=== PATIENT | female | born 1940 | race Caucasian/White ===

== ENCOUNTER 2017-01-17 13:59 | Emergency (ER) | payer OTHER ==
--- NOTE | 2017-01-17 14:37 | EDPHY ---
H & P Stated Complaint: RIGHT SIDE CP SHOOTING DOWN RIGHT ARM, BACK, AND CHEST. HPI/ROS: CHIEF COMPLAINT: Left arm pain, chest pain HISTORY OF PRESENT ILLNESS: This is a 76 y/o female, with a history of hypertension and lupus, arriving with her at the referral of her transverse abdominal muscle surgeon's office complaining of episodic pain underneath her left arm onset 24 hours ago. That resolved and was replaced by right sided chest pain that she feels underneath her right breast and in the right upper chest. The pain is not pleuritic. She describes brief episodes of pain that have progressively increased in frequency and intensity since onset. She is now having an episode about once per hour and each episode lasts 1-2 minutes. No associated cough, nausea, vomiting, dyspnea, leg swelling, flank pain, skin rash or fever. She has an implanted Loop Recorder due to previous syncopes that reportedly shows periods where "my heart just stops." She has been talking with her transverse abdominal muscle surgeon about having the loop recorder removed. She takes a daily 81mg aspirin that she has not yet taken today. No history of cardiac catheterizations. REVIEW OF SYSTEMS: A ten point review of systems was performed and is negative with the exception of the items mentioned in the HPI. Source: Patient Exam Limitations: No limitations - Personal History Current Tetanus/Diphtheria Vaccine: Yes Current Tetanus Diphtheria and Acellular Pertussis (TDAP): Yes - Medical/Surgical History PMH: PMH includes: 1. Hypertension 2. Lupus, has improved with age 3. Ulcerative Colitis - in remission 4. Possible TIAs, but never diagnosed. Head CT in 2005 normal. 5. Osteoarthritis 6. Psoriasis Hx Diabetes: No Other PMH: 1. Hypertension. 2. 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 No recent difficulties related to her lupus. 3. Ulcerative colitis in remission. 4. Osteoarthritis. 5. Psoriasis. psh: eye surgery, left foot surgery, left and right rotator cuff, hysterectomy. - Social History Smoking Status: Former smoker Additional Social History: at bedside. 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 Vital signs reviewed. Eyes: Pupils equal and round, no conjunctival injection, no discharge. Anicteric. ENT, Mouth: Mucous membranes are moist, no oropharyngeal erythema or edema. Neck: No lymphadenopathy, supple. Respiratory: Lungs are clear to auscultation; no wheezes, rales, or rhonchi. Cardiovascular: Regular rate and rhythm; no murmur, rub, or gallop. Gastrointestinal: Abdomen is soft and nontender, no masses or organomegaly, bowel sounds normal. Skin: Warm and dry, no rashes on exposed skin, normal color. No vesicular rash on the thorax. Back: Nontender to palpation over the thoracolumbar spine. No CVAT. Extremities: No lower extremity edema, no calf tenderness or swelling. Neurological: Alert and oriented. Moving all four extremities easily and equally. Psychiatric: Normal affect. Constitutional: Initial Vital Signs Temperature (C) 36.5 C 01/17/17 14:14 Heart Rate 66 01/17/17 14:14 Respiratory Rate 16 01/17/17 14:14 Blood Pressure 104/99 H 01/17/17 14:14 O2 Sat (%) 98 01/17/17 14:14 O2 Delivery Mode Room Air Allergies/Adverse Reactions: Penicillins Allergy (Unknown, Verified 01/19/16 11:36) Unknown Home Medications: Medication Instructions Recorded Aspirin [Aspirin (OTC)] 81 mg PO DAILY20 12/13/11 Lisinopril [Zestril 10 mg (RX)] 20 mg PO DAILY06 12/13/11 Metoprolol Tartrate [Lopressor 25 25 mg PO BID 12/13/11 mg (RX)] Multivitamins [Multivitamin (OTC)] 1 each PO DAILY 12/13/11 Simvastatin [Zocor 40 mg (RX)] 20 mg PO DAILY18 12/13/11 Ubidecarenone [Coenzyme Q10] 100 mg PO DAILY 12/13/11 Amlodipine Besylate 5 mg PO DAILY20 01/08/16 Fosamax 70 MG (RX) ONCE 01/08/16 Lialda 1.2 gm PO BID 01/08/16 Medical Decision Making - Diagnostics EKG Interpretation: 1st 12 lead EKG marred by artifact. 12 lead EKG is interpreted in Trace master View by emergency department physician. Normal sinus rhythm Imaging Results: CT angiogram reported to me by Dr. Mercado. It shows a right left rib 9 Subacute fracture. No pulmonary embolus. There is also note of an incidental thyroid nodule. Imaging: I viewed and interpreted images myself ED Course/Re-evaluation: IV established. Labs drawn including CBC, CHEM, troponin, d-dimer. Patient placed on reactor technician. Chest x-ray ordered. 324mg PO Aspirin administered. Unable to get clean EKG--two machines tried, persistent artifact. Sinus rhythm on monitor. Patient re-evaluated at 3:45 p.m.. She is not experiencing any chest pain on either the right or the left. She has not had chest pain since she arrived. Her D-dimer is mildly elevated. CT angiogram ordered. Chest x-ray is negative for acute pulmonary disease. Troponin is normal. Patient re-evaluated at 4:30 p.m.. She reports 3 minutes episode of pain under her right breast that occurred at 4:10 p.m.. It resolved spontaneously. It was not associated with shortness of breath. It was not pleuritic. She continues with a regular rate and rhythm. Lungs are clear. Awaiting results of CT angiogram. Her HEART score is 2, making the chance of a major are coronary event in the next 6 weeks less than 2%. Given location and nature of this pain I think it is unlikely to be cardiac in origin. She is comfortable returning home and, in fact, is requesting to do so. She will follow up with her transverse abdominal muscle surgeon. We reviewed the danger signs that should prompt her to return for re-evaluation. CT angiogram shows a subacute rib fracture on the right, rib 9. This is the location of her pain. This is likely what is causing her discomfort. She will take [id number] pain medication, Tylenol. Differential Diagnosis: Chest pain including but not limited to myocardial ischemia, pulmonary embolus, chest wall pain, pleural inflammation and pulmonary infectious causes. - Data Points Laboratory Results: Laboratory Results 01/17/17 14:45 01/17/17 14:45 Departure - Departure Disposition: Home, Routine, Self-Care Clinical Impression: Chest pain Qualifiers: Chest pain type: other chest pain Qualified Code(s): R07.89 - Other chest pain ; R07.8 - Other chest pain Closed rib fracture Qualifiers: Encounter type: initial encounter Rib fracture type: single rib Laterality: right Qualified Code(s): S22.31XA - Fracture of one rib, right side, initial encounter for closed fracture Condition: Good Instructions: Chest Pain (ED), Rib Fracture (ED) Additional Instructions: You have a rib fracture on the right, rib 9. This is subacute, which means that it did not occur today but could have occurred a week or 2 ago. I think that this could be what is causing her pain. I recommend taking Tylenol 500 mg every 4 hours as needed for pain. If you become short of breath, have severe persistent pain, developed new or concerning symptoms--you should be re- evaluated. Follow up with your primary care doctor and your transverse abdominal muscle surgeon this week without fail. Return to the ED for any worsening of condition. Referrals: Alanna Alston MD [Primary Care Provider] - As per Instructions Vince Nieto MD [Medical Doctor] - As per Instructions Report Scribed for: Kelly Christianson Report Scribed by: Jaclyn Hayes Date of Report: 01/17/17 Time of Report: 14:57 Physician Review and Approval Statement: 01/17/17 14:37 Portions of this note were transcribed by the medical attendant. I, Dr. Kelly Christianson, personally performed the history, physical exam, and medical decision- making; and confirmed the accuracy of the information in the transcribed note.
[2017-01-17] MEDS ORDERED: ASPIRIN 81 MG CHEWABLE TAB ONE (14:54)
[2017-01-17 15:04] LABS: % IMMATURE GRANULYOCYTES 0.2 % (0.0-1.1); ABSOLUTE IMMATURE GRANULOCYTES 0.02 10^3/uL (0.00-0.10); ADD DIFF? NO; ADD MORPH? NO; ADD SCAN? NO; ATYPICAL LYMPHOCYTE FLAG 0 (0-99); FRAGMENT RBC FLAG 0 (0-99); HEMATOCRIT 41.4 % (38.0-47.0); LEFT SHIFT FLG 0 (0-99); LIPEMIA HEMOLYSIS FLAG 90 (0-99); MEAN CELL HEMOGLOBIN CONCENTR. 33.8 g/dL (32.4-36.7); MEAN CELL VOLUME 85.7 fL (81.5-99.8); MEAN PLATELET VOLUME 9.3 fL (8.7-11.7); PLATELET CLUMPS FLAG 10 (0-99); PLATELET COUNT 356 10^3/uL (150-400); RED BLOOD CELL COUNT 4.83 10^6/uL (4.18-5.33)
[2017-01-17 15:15] LABS: ANION GAP 15 mEq/L (8-16); CARBON DIOXIDE 23 mEq/l (22-31); CHLORIDE 95 mEq/L (97-110); CREATININE 0.8 mg/dL (0.6-1.0); GLOMERULAR FILTRATION RATE > 60; GLUCOSE 97 mg/dL (70-100); POTASSIUM 3.9 mEq/L (3.5-5.2); SODIUM 133 mEq/L (134-144)
[2017-01-17 15:27] LABS: TROPONIN I < 0.012 ng/mL (0-0.034)
[2017-01-17] MEDS ORDERED: IOPAMIDOL (ISOVUE 370) 100 ML BTL IV ONE (16:09)
--- NOTE | 2017-01-17 16:41 | CPEKG ---
Heart Rate: 62 RR Interval: 968 P-R Interval: 212 QRSD Interval: 82 QT Interval: 424 QTC Interval: 431 P [place]: 70 QRS [place]: 46 T Wave [place]: 35 EKG Severity - NORMAL ECG - EKG Impression: SINUS RHYTHM Electronically Signed By: Monika Lopez 17-Jan-2017 22:46:27
[2017-01-17 17:49] VITALS: BP 150/93; PULSE 80; RESP 14; TEMP 98.4; O2SAT 94
== END 2017-01-17 17:48 | disposition home or self-care (01) ==
DX: M84.48XA Pathological fracture, other site, initial encounter for fracture (principal); I10 Essential (primary) hypertension; Z87.891 Personal history of nicotine dependence
CPT/HCPCS: 71020; 71275; 93005; 99285; Q9967

== ENCOUNTER 2017-02-15 08:10 | Day surgery (SDC) | payer OTHER ==
[2017-02-15] MEDS ORDERED: LIDOCAINE 1% 300 MG/30 ML SDV SC ONE (09:00)
[2017-02-15] MEDS ORDERED: BACITRACIN IRRIGATION/NS 50,000 UNITS/1,000 ML BTL IRR ONE (09:45)
[2017-02-15] MEDS ORDERED: LIDOCAINE 1% 300 MG/30 ML SDV ONE (12:06)
[2017-02-15] MEDS ORDERED: fentaNYL 100 MCG/2 ML INJ ONE (12:06)
[2017-02-15] MEDS ORDERED: BUPIVACAINE 0.5% 30 ML SDV ONE (12:07)
[2017-02-15] MEDS ORDERED: MIDAZOLAM 2 MG/2 ML VIAL ONE (12:07)
[2017-02-15] MEDS ORDERED: LIDO/EPI 1% **for epidural** 30 ML SDV ONE (12:07)
--- NOTE | 2017-02-15 13:27 | CPIP ---
[f rep st] INVASIVE CARDIAC PROCEDURE DATE OF PROCEDURE: 02/15/2017 PROCEDURE PERFORMED: Loop recorder removal. INDICATION FOR THE PROCEDURE: The device is end of life and no longer communicating and is therefor e dysfunctional. It is causing pain and discomfort to the patient, and she has asked that it be rem bryan. PROCEDURE IN DETAIL: After informed consent was obtained, n.p.o. status was confirmed. The patient received intravenous conscious sedation with Versed and fentanyl. After adequate conscious sedatio n had been achieved, the area was cleaned, prepped, and draped in sterile fashion. Approximately 10 cc of 1% lidocaine were utilized for local anesthesia. After adequate anesthesia had been achieved , the skin was sharply incised with a #10 blade. Electrocautery and local pressure were used for he mostasis. Sharp and blunt dissection were used to identify the event/loop recorder. The device ser ial number was [id number]. The device was taken out with forceps. The pocket was thoroughly flushe d and checked for bleeding. Hemostasis was established and documented. The skin was then closed wi th 3 interrupted rip with excellent wound edge apposition and hemostasis documented. A sterile dressing was applied. FINAL IMPRESSION: Successful event recorder removal. /[id number]/MODL
== END 2017-02-15 15:21 | disposition home or self-care (01) ==
LOC: FCATH 08:10
PROVIDERS: ATTEND Internal Medicine Cardiovascular Disease
PROC: 0JPT02Z Removal of Monitoring Device from Trunk Subcutaneous Tissue and Fascia, Open Approach (ICD-10-PCS; principal; 2017-02-15)
DX: Z45.09 Encounter for adjustment and management of other cardiac device (principal); T82.847A Pain due to cardiac prosthetic devices, implants and grafts, initial encounter; E78.5 Hyperlipidemia, unspecified; I10 Essential (primary) hypertension; I25.10 Atherosclerotic heart disease of native coronary artery without angina pectoris; Z86.73 Personal history of transient ischemic attack (TIA), and cerebral infarction without residual deficits; Z87.891 Personal history of nicotine dependence; Z88.0 Allergy status to penicillin
CPT/HCPCS: J2250; J3010

== ENCOUNTER → 2017-05-17 | Outpatient (CLI) | payer OTHER | LOC: FIMAGING 08:20 | PROVIDERS: ATTEND Family Medicine | DX: Z13.820 Encounter for screening for osteoporosis (principal); M81.0 Age-related osteoporosis without current pathological fracture; S22.31XD Fracture of one rib, right side, subsequent encounter for fracture with routine healing; M32.9 Systemic lupus erythematosus, unspecified; K51.90 Ulcerative colitis, unspecified, without complications; Z78.0 Asymptomatic menopausal state; Z82.62 Family history of osteoporosis ==

== ENCOUNTER → 2017-06-20 | Outpatient (CLI) | payer OTHER | LOC: CIMAGING 08:52 | PROVIDERS: ATTEND Family Medicine | DX: Z12.31 Encounter for screening mammogram for malignant neoplasm of breast (principal); Z80.3 Family history of malignant neoplasm of breast | CPT/HCPCS: G0202 ==

== ENCOUNTER → 2017-11-30 | Outpatient (CLI) | payer OTHER | LOC: CIMAGING 18:56 | PROVIDERS: ATTEND Family Medicine | DX: M17.11 Unilateral primary osteoarthritis, right knee (principal); M23.8X1 Other internal derangements of right knee | CPT/HCPCS: 73562-PO ==

== ENCOUNTER → 2018-05-31 | Outpatient (CLI) | payer OTHER | LOC: CIMAGING 12:43 | PROVIDERS: ATTEND Family Medicine | DX: R07.9 Chest pain, unspecified (principal) | CPT/HCPCS: 71046-PO ==

== ENCOUNTER → 2018-06-09 | Outpatient (CLI) | payer OTHER | LOC: CIMAGING 12:40 | PROVIDERS: ATTEND Family Medicine | DX: R92.8 Other abnormal and inconclusive findings on diagnostic imaging of breast (principal) | CPT/HCPCS: 76641-PO ==

== ENCOUNTER → 2018-09-12 | Outpatient (CLI) | payer OTHER | LOC: FIMAGING 07:18 | PROVIDERS: ATTEND Radiology Diagnostic Radiology | DX: I83.93 Asymptomatic varicose veins of bilateral lower extremities (principal) ==

== ENCOUNTER 2018-09-29 06:55 | Day surgery (SDC) | payer OTHER ==
[2018-09-29] MEDS ORDERED: NS 1,000 ML IV ONE (07:20)
[2018-09-29] MEDS ORDERED: NALOXONE HCL 0.4 MG/ML INJ IVP PRN (07:20)
[2018-09-29] MEDS ORDERED: MIDAZOLAM 2 MG/2 ML VIAL IVP PRN (07:20)
[2018-09-29] MEDS ORDERED: ceFAZolin 2 GM/DEXTROSE 100 ML IV ONE (07:20)
[2018-09-29] MEDS ORDERED: ONDANSETRON 4 MG/2 ML VIAL IVP ONE (07:20)
[2018-09-29] MEDS ORDERED: FLUMAZENIL 0.5 MG/5 ML MDV IVP PRN (07:20)
[2018-09-29] MEDS ORDERED: fentaNYL 100 MCG/2 ML INJ IVP PRN (07:20)
[2018-09-29] MEDS ORDERED: LIDO/EPI 1% **for epidural** 30 ML SDV ONE (08:38)
[2018-09-29] MEDS ORDERED: SODIUM TETRADECYL SULFATE 3% 2 ML VIAL IV ONE (08:39)
[2018-09-29] MEDS ORDERED: MIDAZOLAM 2 MG/2 ML VIAL ONE (08:52)
[2018-09-29] MEDS ORDERED: fentaNYL 100 MCG/2 ML INJ ONE (08:52)
[2018-09-29] MEDS ORDERED: NALOXONE HCL 0.4 MG/ML INJ ONE (08:52)
[2018-09-29] MEDS ORDERED: FLUMAZENIL 0.5 MG/5 ML MDV IVP ONE (08:52)
--- NOTE | 2018-09-29 09:23 | PDPROPOC ---
Sedation Plan of Care Sedation Plan of Care: vital signs stable, mental status noted, patient educated of risks, benefits, alternatives, patient can tolerate sedation ASA Classification: ASA 2 Planned drugs: fentanyl, midazolam Mallampati Score: Class 2 Mallampati Reference Image: Patient passed 3-3-2 rule?: Yes
--- NOTE | 2018-09-29 09:34 | PDGENHP ---
History & Physical Chief Complaint: painful varicose veins, LT leg History of Present Illness: ropey varicose veins LT knee, and calf. Pertinent Past, Social, Family History: HTN, lupus, UC, osteoarthritis, psoriasis. Relevant Physical Exam: ropey varicose veins are mapped. Cardiorespiratory Assessment: rrr, cta
[2018-09-29] MEDS ORDERED: ONDANSETRON 4 MG/2 ML VIAL IVP PRN (11:12)
[2018-09-29] MEDS ORDERED: ONDANSETRON DISINTEGRATING 4 MG TAB PO PRN (11:12)
[2018-09-29] MEDS ORDERED: IBUPROFEN 200 MG TAB PO ONE (11:12)
[2018-09-29] MEDS ORDERED: HYDROCODONE/APAP 5/325 TAB PO PRN (11:12)
[2018-09-29] MEDS ORDERED: NS 1,000 ML IV SCH (11:15)
--- NOTE | 2018-09-29 11:33 | PDRADPN ---
Radiology Procedure Note Date of Procedure: 09/29/18 Radiologist: Cathryn Barnes Anesthesia: IV Sedation Pre-op Diagnosis: LLE VARICOSE VEINS Post-op Diagnosis: SAME Indication: PAIN AND SWELLING Procedure: LASER, SCLEROTHERAPY, PHLEBECTOMY Inf/Abcess present in the surg proc area at time of surgery?: No
[2018-09-29 14:45] VITALS: BP 117/64
== END 2018-09-29 14:45 | disposition home or self-care (01) ==
LOC: FIMAGING 06:55
PROVIDERS: ATTEND Radiology Diagnostic Radiology
DX: I83.811 Varicose veins of right lower extremity with pain (principal); I10 Essential (primary) hypertension; M32.9 Systemic lupus erythematosus, unspecified; L40.9 Psoriasis, unspecified
CPT/HCPCS: 36471; 36478; 37765; 76937; 99153; C1769; C1894; J0690; J2250; J2310; J3010

== ENCOUNTER → 2018-10-17 | Outpatient (CLI) | payer OTHER | LOC: FIMAGING 15:18 ==

== ENCOUNTER → 2018-11-02 | Outpatient (CLI) | payer OTHER | LOC: FIMAGING 12:34 | PROVIDERS: ATTEND Radiology Diagnostic Radiology | DX: Z09 Encounter for follow-up examination after completed treatment for conditions other than malignant neoplasm (principal); I83.811 Varicose veins of right lower extremity with pain ==

== ENCOUNTER → 2018-12-07 | Outpatient (CLI) | payer OTHER | LOC: FIMAGING 16:08 ==

== ENCOUNTER → 2019-01-01 | Outpatient (CLI) | payer OTHER ==
[~2019-01-01] MED LIST: GADOBUTROL 10 ML VIAL IVP ONE
== END ==
LOC: FIMAGING 11:32
PROVIDERS: ATTEND Family Medicine
DX: N64.4 Mastodynia (principal); N64.89 Other specified disorders of breast
CPT/HCPCS: A9585; C8908; 82565-PO

== ENCOUNTER → 2019-01-03 | Outpatient (CLI) | payer OTHER | LOC: FIMAGING 11:31 | PROVIDERS: ATTEND Family Medicine | DX: N64.4 Mastodynia (principal); N64.89 Other specified disorders of breast | CPT/HCPCS: A9585; C8908 ==